=== PATIENT | female | born 1970 | race African-American/Black ===

== ENCOUNTER 2017-07-13 00:15 | Emergency (ER) | payer BC ==
[~2017-07-13] VITALS: Ht 177.8 cm; Wt 128.5 kg
--- NOTE | ~2017-07-13 | CR63 ---
STS. [facility] [place] A Service of [facility] RADIOLOGY TEXT RESULTS PATIENT: RADHA DOTY LOCATION: SED : 68 UNIT #: [id number] AGE: [address]: Grant Dee DO SEX: F ORDER DR: [id number] [place] [id number] MR#: [id number] Acc #: [id number] NAME: RADHA DOTY : 1970 SEX: F STUDY DATE/TIME: 07/13/2017 2:16 UNIT: SED ROOM: STUDY DESCRIPTION: CR Chest 2 View Attending Physician: Grant Dee D.O.. Ordering Physician: Grant Dee D.O.. Primary Care Physician: No Primary Care Physician MEDICAL IMAGING REPORT This report is preliminary unless electronic signature is present. EXAM Chest x-ray, 07/13/2017. HISTORY 46-year-old female in the ED complaining of chest pain beginning earlier tonight. Anxiety. TECHNIQUE PA and lateral upright chest series. FINDINGS Mild cardiomegaly. Pulmonary vascularity is normal. The lungs appear clear. No visible pulmonary infiltrate or pleural effusion. No change since 07/17/2016. IMPRESSION No active disease. Stable mild cardiomegaly. No change since 07/17/2016. Dictated by... Wayne Stubbs M.D. THIS IS AN ELECTRONICALLY VERIFIED REPORT Wayne Stubbs M.D. at 07/14/2017 6:05 AM GREER/zack TD: 07/14/2017 00:18 JOB #: [id number] MEDICAL IMAGING REPORT Page 1 of 1
--- NOTE | ~2017-07-13 | EKG ---
PATIENT: RADHA DOTY UNIT #: [id number] Ventricular Rate: 72 BPM Atrial Rate: 72 BPM P-R Interval: 136 ms QRS Duration: 86 ms Q-T Interval: 432 ms QTC Calculation(Bezet): 473 ms P [place]: 46 degrees Calculated R [place]: 64 degrees Calculated T [place]: 27 degrees Diagnosis Line: Normal sinus rhythm Diagnosis Line: Normal ECG Diagnosis Line: No previous ECGs available Diagnosis Line: Confirmed by KRYSTEN FISH MD ([id number]) on Diagnosis Line: 07/17/2017 11:17:05 AM INTERPRETING MD: ABE CERON
[~2017-07-13 00:15] MED LIST: ADVIL200 M2; AMOXICILLIN PO; BACLOFEN10 MG PO; DOCUSATE SODIU100 MG PO; FERGON240 ( 27 ) PO; FERRO-TIME325 MG PO; FIORICET 50-301 EACH PO; FLEXERIL PO; FLEXERIL10 MG; FLEXERIL10 MG PO; IBUPROFEN800 MG PO; IRON; LORTAB 5/500 TA1 TA1 PO; MINI PRENATAL1 EACH PO; MOBIC PO; NO MEDICATIONS; PHENERGAN25 M1 PO; PRENATAL VIT; ROBAXIN PO; ULTRAM PO; VITAMIN D 4001 UDTAB PO; VOLTAREN PO; VOLTAREN75 MG PO
[2017-07-13] MEDS ORDERED: PRENATAL VITAM1 EAC3 (00:25)
[2017-07-13] MEDS ORDERED: VITAMIN C250 M1 (00:25)
[2017-07-13] MEDS ORDERED: MOBIC (00:25)
[2017-07-13 01:38] LABS: BASOPHIL# 0.1 X10e3 (0-0.3); EOSINOPHIL# 0.1 X10e3 (0-0.7); HEMATOCRIT 32.6 % (35.0-45.0); HEMOGLOBIN 10.2 gm/dL (12.0-16.0); LYMPHOCYTE# 1.5 X10e3 (1.0-3.5); LYMPHOCYTE% 27.9 % (17.0-45.0); MEAN CELL VOLUME 66.2 FL (83-96); MEAN CORPUSCULAR HEMOGLOBIN 20.6 PG (28-34); MEAN CORPUSCULAR HGB CONC 31.1 g/dL (30-36); MEAN PLATELET VOLUME 9.1 FL (6.5-11.5); MONOCYTE# 0.5 X10e3 (0-1.0); NEUTROPHIL# 3.1 X10e3 (1.5-7.1); NEUTROPHIL% 60.1 % (40-75); PLATELET COUNT 280 X10e3 (140-420); RED BLOOD COUNT 4.92 X10e (3.90-5.30); WHITE BLOOD COUNT 5.2 X10e3 (4.0-10.5)
[2017-07-13 01:40] LABS: DIFF IND YES
[2017-07-13 01:42] LABS: POC - CKMB 1.5 ng/mL (0.0-7.9); POC - MYOGLOBIN 70.7 ng/mL (0.0-169.0); POC - TROPONIN <0.05 ng/mL (<=0.05)
[2017-07-13 01:46] LABS: ALBUMIN SERUM 3.9 g/dL (3.5-5.0); BILIRUBIN, DIRECT 0.1 mg/dL (0.0-0.2); BILIRUBIN,INDIRECT 0.3 mg/dL (0.0-0.9); BILIRUBIN,TOTAL 0.4 mg/dL (0.2-2.0); BUN/CREATININE RATIO 23.33; CALCIUM SERUM 8.5 mg/dL (8.4-10.2); CREATININE SERUM 0.9 mg/dL (0.6-1.4); GLOM FILT RATE Estimated 88.3 mL/min (>60); POTASSIUM 3.5 mmol/L (3.5-5.1)
[2017-07-13 01:49] LABS: URINE SOURCE CLEAN CATCH
[2017-07-13 01:51] LABS: URINE APPEARANCE CLEAR; URINE BILIRUBIN NEG (NEG); URINE BLOOD TRACE-INTACT (NEG); URINE COLOR YELLOW; URINE GLUCOSE NEG (NORM); URINE KETONE NEG (NEG); URINE LEUKOCYTE ESTERASE NEG (NEG); URINE NITRATE NEG (NEG); URINE PROTEIN NEG (NEG)
[2017-07-13 01:56] LABS: MICRO INDICATED? YES
[2017-07-13 01:57] LABS: CULTURE INDICATED? NO; URINE BACTERIA NEG (NEG); URINE MUCUS PRESENT; URINE SQUAMOUS EPITHELIAL CELL MODERATE /[HPF]
[2017-07-13 02:02] LABS: ANISOCYTOSIS MOD; HYPOCHROMIA SL; MICROCYTOSIS SL; PLATELET ESTIMATE NORMAL (NORMAL); POIKILOCYTOSIS SL
[2017-07-13 02:03] LABS: SPHEROCYTE SL
[2017-07-13 03:21] LABS: POC - CKMB 1.4 ng/mL (0.0-7.9); POC - MYOGLOBIN 43.9 ng/mL (0.0-169.0); POC - TROPONIN <0.05 ng/mL (<=0.05)
== END 2017-07-13 04:19 | disposition home or self-care (01) ==
LOC: SED 00:15
PROVIDERS: Emergency Medicine
DX: R07.9 Chest pain, unspecified (principal); F41.9 Anxiety disorder, unspecified; Z90.49 Acquired absence of other specified parts of digestive tract
CPT/HCPCS: 36415; 71020; 80048; 80076; 81003; 82553; 83690; 83874; 84484; 85025; 93005; 99285